=== PATIENT | male | born 1975 | race Caucasian/White ===

== ENCOUNTER → 2016-08-01 | Outpatient (CLI) | payer BC ==
--- NOTE | 2016-08-01 09:43 | REP ---
PA and lateral chest 08/01/2016 Indication: productive cough and fever Comparison: PA and lateral chest 10/02/2005 Findings: Cardiomediastinal silhouette is normal. Small area of left lower lobe consolidation is most compatible with most compatible with alveolar infiltrate. Lungs are otherwise clear. There are mild degenerative changes in thoracic spine. Soft tissues are within normal limits. Impression: left lower lobe parenchymal disease in the retrocardiac location most compatible with alveolar infiltrate. However, followup to complete resolution is recommended. Signed by Dimple Andrade MD 08/01/2016 09:35 A
== END ==
LOC: M ADAMS 09:05
PROVIDERS: ATTEND Physician Assistant
DX: R05 Cough (principal); R50.9 Fever, unspecified

== ENCOUNTER → 2018-02-08 | Outpatient (CLI) | payer BC | LOC: M ADAMS 08:45 | DX: R06.00 Dyspnea, unspecified (principal); R53.83 Other fatigue; F17.210 Nicotine dependence, cigarettes, uncomplicated | CPT/HCPCS: 71046 ==

== ENCOUNTER → 2018-02-28 | Outpatient (REF) | payer BC | LOC: M LAB REF 12:08 | DX: R91.8 Other nonspecific abnormal finding of lung field (principal) | CPT/HCPCS: 88160 ==

== ENCOUNTER → 2018-03-01 | Outpatient (REF) | payer BC | LOC: M LAB REF 10:14 | DX: R91.8 Other nonspecific abnormal finding of lung field (principal) ==

== ENCOUNTER → 2018-03-02 | Outpatient (REF) | payer BC | LOC: M LAB REF 10:05 | DX: R91.8 Other nonspecific abnormal finding of lung field (principal) | CPT/HCPCS: 88160 ==

== ENCOUNTER → 2018-03-20 | Outpatient (CLI) | payer BC | LOC: M PLARAD 10:28 | DX: R91.8 Other nonspecific abnormal finding of lung field (principal) | CPT/HCPCS: 78815 ==

== ENCOUNTER → 2018-04-06 | Outpatient (REF) | payer BC ==
[2018-04-08 08:06] LABS: ALPHA 1 ANTITRYPSIN 79 mg/dL (90-200)
== END ==
LOC: M LABDRWAD 12:10
DX: R91.8 Other nonspecific abnormal finding of lung field (principal)
CPT/HCPCS: 82103

== ENCOUNTER → 2018-04-26 | Outpatient (REF) | payer BC ==
[2018-05-01 00:06] LABS: A1A FOR PHENOTYPE 93 mg/dL (90-200); ALPHA-1-ANTITRYPSIN PHENOTYPE MZ (.)
== END ==
LOC: M LAB REF 13:39
DX: J44.9 Chronic obstructive pulmonary disease, unspecified (principal)
CPT/HCPCS: 82103

== ENCOUNTER → 2018-07-14 | Outpatient (CLI) | payer BC ==
--- NOTE | 2018-07-14 13:29 | REP ---
Clinical: Right shoulder pain . Technique: Internal rotation, external rotation, and Y view. Findings: No acute fracture or dislocation. The acromioclavicular and glenohumeral joints are intact. No periarticular calcifications or degenerative changes are appreciated. Sub acromial space is normal. Surrounding soft tissues are unremarkable. Impression: Normal age-appropriate right shoulder radiographs. Electronically Signed by Brody Weller MD 07/14/2018 01:21 P
--- NOTE | 2018-07-14 13:30 | REP ---
Clinical: Neck and right shoulder pain. Technique: AP, lateral, open mouth views of the cervical spine. Findings: Alignment and lordosis is relatively well maintained. Minimal age-related changes include subtle endplate sclerosis. There is very subtle disc space narrowing at C4-5 and C5-6 suggested. C1-C2 articulation and odontoid process are normal. Impression: Mild age-related degenerative changes. Electronically Signed by Brody Weller MD 07/14/2018 01:22 P
== END ==
LOC: M ADAMS 11:13
PROVIDERS: ATTEND Physician Assistant
DX: M25.511 Pain in right shoulder (principal); M50.30 Other cervical disc degeneration, unspecified cervical region

== ENCOUNTER → 2018-08-28 | Outpatient (CLI) | payer BC ==
[~2018-08-28] MED LIST: ISOVUE-370 76% 100ML VIAL (Q9967) As Ordered ONE
--- NOTE | 2018-08-29 07:40 | REP ---
Clinical: Abnormal lung findings. Technique: Axial contrast enhanced images from the thoracic inlet to the upper abdomen with coronal and sagittal re-formations. Comparison: 02/27/2018. Findings: Advanced COPD/emphysematous changes primarily involving the bilateral upper lung zones noted without consolidation, significant nodule or mass lesion. No pleural effusion. No pneumothorax. Tracheobronchial tree demonstrates perihilar bronchiectasis are remains patent. Mediastinal and bilateral hilar adenopathy remains essentially unchanged including right hilar lymph nodes measuring up to approximately 15 mm. Thoracic aorta, pulmonary vasculature and heart/pericardium are normal. Surrounding musculoskeletal structures are intact without focal osseous abnormality. Limited upper abdomen demonstrates normal bilateral adrenal glands. Impression: 1. Advanced COPD/emphysematous changes along with mediastinal/hilar adenopathy remaining stable compared to prior examination. 2. No obvious acute process. No significant nodule or mass lesion identified. Electronically Signed by Brody Weller MD 08/29/2018 07:32 A
== END ==
LOC: M RAD 13:30
PROVIDERS: ATTEND Internal Medicine Pulmonary Disease
DX: J43.9 Emphysema, unspecified (principal)
CPT/HCPCS: 71260; Q9967

== ENCOUNTER → 2018-10-17 | Outpatient (REF) | payer BC ==
[2018-10-17 17:12] LABS: BASO % 0.8 % (0.0-1.0); EOS # 0.1 10^3/uL (0.0-0.50); EOS % 2.3 % (0.0-3.0); HEMATOCRIT 40.7 % (42.0-52.0); HEMOGLOBIN 13.7 g/dl (13.5-17.5); LYMPH # 1.2 10^3/uL (1.5-4.5); LYMPH % 24.6 % (24.0-44.0); MEAN CORPUSCULAR HEMOGLOBIN 30.5 pg (27.0-33.0); MEAN CORPUSCULAR HGB CONC 33.7 g/dl (32.0-36.5); MEAN CORPUSCULAR VOLUME 90.6 fl (80.0-96.0); MONO # 0.3 10^3/uL (0.0-0.8); MONO % 7.1 % (0.0-5.0); NEUTROPHILS # 3.1 10^3/uL (1.8-7.7); PLATELET COUNT, AUTOMATED 168 10^3/uL (150-450); RED BLOOD COUNT 4.49 10^6/uL (4.30-6.10); WHITE BLOOD COUNT 4.8 10^3/uL (4.0-10.0)
[2018-10-17 17:16] LABS: INR 1.09
[2018-10-17 17:17] LABS: PARTIAL THROMBOPLASTIN TIME 27.6 SECONDS (25.4-37.6)
[2018-10-17 17:37] LABS: BLOOD UREA NITROGEN 14 MG/DL (7-18); CALCIUM LEVEL 8.7 MG/DL (8.5-10.1); CARBON DIOXIDE LEVEL 25 MEQ/L (21-32); CHLORIDE LEVEL 106 MEQ/L (98-107); CREATININE FOR GFR 1.01 MG/DL (0.70-1.30); GLOMERULAR FILTRATION RATE > 60.0 (>60); GLUCOSE, FASTING 70 MG/DL (70-100); POTASSIUM SERUM 5.2 MEQ/L (3.5-5.1); SODIUM LEVEL 137 MEQ/L (136-145)
[2018-10-17 17:56] LABS: PROTHROMBIN TIME 14.2 SECONDS (12.1-14.4)
== END ==
LOC: M LAB REF 16:58
PROVIDERS: ATTEND Internal Medicine Pulmonary Disease
DX: R91.8 Other nonspecific abnormal finding of lung field (principal)

== ENCOUNTER 2018-10-30 08:21 | Day surgery (SDC) | payer BC ==
[~2018-10-30] VITALS: Ht 160 cm; Wt 74.1 kg
[~2018-10-30 08:21] MED LIST changes: +ALBUTEROL SULFATE 2.5 MG/0.5 ML INH NEB SOLN INH ONE; +FLUO20CA19; +GABA-843 PO; -ISOVUE-370 76% 100ML VIAL (Q9967) As Ordered ONE; +LIDOCAINE 4% INJ 5 ML AMP INH ONE; +LR 1,000 ML IV ONE; +OMEP40CA2
[2018-10-30] MEDS ORDERED: THROMBIN SOLN 5,000 UNITS VIAL As Ordered ONE (08:23)
[2018-10-30] MEDS ORDERED: LIDOCAINE 1% MDV 20ML VIAL As Ordered ONE (08:23)
[2018-10-30] MEDS ORDERED: EPINEPHrine 1MG/10ML SYRINGE 1.5IN As Ordered ONE (08:24)
[2018-10-30] MEDS ORDERED: LIDOCAINE VISCOUS 2% SOLN 15ML UDC As Ordered ONE (08:24)
[2018-10-30] MEDS ORDERED: CETACAINE SPRAY 5GM As Ordered ONE (08:24)
[2018-10-30] MEDS ORDERED: fentaNYL 100 MCG/2 ML INJECTION (J3010) As Ordered ONE ×2 (09:23→10:12)
[2018-10-30] MEDS ORDERED: MIDAZOLAM INJ 2 MG/2 ML VIAL (J2250) As Ordered ONE (09:23)
[2018-10-30] MEDS ORDERED: LIDOCAINE 2% INJ 100 MG/5 ML SDV (FOR ANES.) As Ordered ONE (09:25)
[2018-10-30] MEDS ORDERED: dexameTHASONE 4 MG/ML 1ML VIAL (J1100) As Ordered ONE (09:25)
[2018-10-30] MEDS ORDERED: ONDANSETRON 4MG/2ML VIAL (J2405) As Ordered ONE (09:25)
[2018-10-30] MEDS ORDERED: ROCURONIUM BROMIDE 50 MG/5 ML VIAL As Ordered ONE (09:25)
[2018-10-30] MEDS ORDERED: PROPOFOL 200 MG/20 ML VIAL As Ordered ONE (09:25)
[2018-10-30] MEDS ORDERED: SUGAMMADEX SODIUM 500 MG/5 ML VIAL (BRIDION) As Ordered ONE (10:33)
[2018-10-30] MEDS ORDERED: fentaNYL 100 MCG/2 ML INJECTION (J3010) IV PRN (11:15)
[2018-10-30] MEDS ORDERED: LR 1,000 ML IV SCH (11:15)
[2018-10-30] MEDS ORDERED: PERCOCET 5MG/325MG TAB PO PRN (11:15)
[2018-10-30] MEDS ORDERED: ONDANSETRON 4MG/2ML VIAL (J2405) IV PRN (11:15)
--- NOTE | 2018-10-30 11:34 | REP ---
Portable chest, 11:16 a.m., single AP upright view, post bronchoscopy: Comparison is a 10/03/2015. There is an incomplete inspiratory effort. There is no pneumothorax or pleural fluid collection. There is left lower lobe atelectasis. Right lung is clear. Cardiac size is normal. Electronically Signed by Matt Fields MD 10/30/2018 11:25 A
[2018-10-30 11:50] VITALS: BP 111/62
--- NOTE | 2018-10-30 13:31 | ROOR ---
Patient Name: Titus Lee Procedure Date: 10/30/2018 8:44 AM Date of : 1975 Admit Type: Outpatient Age: 42 Note Status: Finalized Attending MD: Zora Duffy MD Procedure: Bronchoscopy Indications: Bilateral hilar lymphadenopathy, Mediastinal adenopathy, Paratracheal adenopathy Providers: Zora Duffy MD (Doctor) Referring MD: 1. No Referring Physician 1. No Referring Physician, Admin. (Referring MD) Requesting Physician: Medicines: General Anesthesia, Cetacaine topical Complications: No immediate complications. Estimated blood loss: Minimal Procedure: Pre-Anesthesia Assessment: - Prior to the procedure, a History and Physical was performed, and patient medications and allergies were reviewed. The patient's tolerance of previous anesthesia was also reviewed. The risks and benefits of the procedure and the sedation options and risks were discussed with the patient. All questions were answered, and informed consent was obtained. Prior Anticoagulants: The patient has taken no previous anticoagulant or antiplatelet agents. ASA Grade Assessment: III - A patient with severe systemic disease. After reviewing the risks and benefits, the patient was deemed in satisfactory condition to undergo the procedure. The Bronchoscope was introduced through the mouth, via the endotracheal tube (the patient was intubated for the procedure) and advanced to the tracheobronchial tree of both lungs. The procedure was accomplished without difficulty. The patient tolerated the procedure well. Findings: The endotracheal tube is in good position. The visualized portion of the trachea is of normal caliber. The emory is sharp. The tracheobronchial tree was examined to at least the first subsegmental level. Bronchial mucosa and anatomy are normal; there are no endobronchial lesions, and no secretions. An endobronchial ultrasound endoscope was utilized in order to assist with fine needle aspiration in the subcarinal area and in the right hilum. Transbronchial needle aspirations of lymph nodes were performed in the subcarinal area and in the right hilum using an Olympus EBUS-TBNA 21 gauge needle and sent for routine cytology. The procedure was guided by ultrasound. Impression: - Bilateral hilar lymphadenopathy - Mediastinal adenopathy - Paratracheal adenopathy - The airway examination was normal. - Endobronchial ultrasound was performed. - A transbronchial needle aspiration was performed. Recommendation: - Follow up with bronchoscopist as previously scheduled. Attending Participation: I personally performed the entire procedure. Zora Duffy MD 10/30/2018 1:31:24 PM Number of Addenda: 0 Note Initiated On: 10/30/2018 8:44 AM
== END 2018-10-30 12:18 | disposition home or self-care (01) ==
LOC: M SDC 08:21
PROVIDERS: ATTEND Internal Medicine Pulmonary Disease
DX: J44.9 Chronic obstructive pulmonary disease, unspecified (principal); K21.9 Gastro-esophageal reflux disease without esophagitis; J30.9 Allergic rhinitis, unspecified; F32.9 Major depressive disorder, single episode, unspecified; F10.10 Alcohol abuse, uncomplicated; F17.210 Nicotine dependence, cigarettes, uncomplicated; Z79.899 Other long term (current) drug therapy; Z79.51 Long term (current) use of inhaled steroids
CPT/HCPCS: 31652; 71045; 88173; 88305; 88313; J1100; J2250; J2405; J3010

== ENCOUNTER → 2019-10-02 | Outpatient (CLI) | payer BC ==
[~2019-10-02] MED LIST changes: -ALBUTEROL SULFATE 2.5 MG/0.5 ML INH NEB SOLN INH ONE; -FLUO20CA19; +FLUO20CA22; -LIDOCAINE 4% INJ 5 ML AMP INH ONE; -LR 1,000 ML IV ONE; -OMEP40CA2; +OMEP40CA97
--- NOTE | 2019-10-03 04:18 | REP ---
Clinical: Chest pain. History of COPD. Technique: Axial noncontrast images from the thoracic inlet to the upper abdomen with coronal and sagittal re-formations. Comparison: 08/28/2018, 02/27/2018. Findings: Advanced COPD/emphysematous changes primarily involving the bilateral upper lung zones with scattered bullae/blebs and mild early bronchiectasis again noted and similar to prior examination. No consolidation. No effusion. No significant nodule or mass lesion identified. Mediastinum demonstrates relatively normal thoracic aorta, pulmonary vasculature and heart/pericardium. No significant adenopathy. Musculoskeletal structures are intact. Limited upper abdomen demonstrates normal bilateral adrenal glands. Impression: COPD/emphysematous changes similar to prior examination. No acute mediastinal or pleuroparenchymal process appreciated. Electronically Signed by Brody Weller MD 10/03/2019 04:09 A
== END ==
LOC: M RAD 11:03
PROVIDERS: ATTEND Internal Medicine Pulmonary Disease
DX: J44.9 Chronic obstructive pulmonary disease, unspecified (principal)

== ENCOUNTER → 2019-10-11 | Outpatient (REF) | payer BC | LOC: M LABDRWAD 11:54 | PROVIDERS: ATTEND Internal Medicine Pulmonary Disease | DX: E88.01 Alpha-1-antitrypsin deficiency (principal) ==

== ENCOUNTER → 2019-12-19 | Outpatient (CLI) | payer BC ==
--- NOTE | 2019-12-19 19:25 | REP ---
Clinical: Pain. Technique: AP, lateral, bilateral oblique views of the right first digit. Findings: No acute fracture or dislocation. Degenerative changes include periarticular sclerosis and minimal joint space narrowing primarily involving the metacarpal phalangeal joint. No subcutaneous emphysema or foreign body. Impression: Mild degenerative changes primarily involving the MCP joint. Electronically Signed by Brody Weller MD 12/19/2019 07:17 P
== END ==
LOC: M ADAMS 08:46
PROVIDERS: ATTEND Physician Assistant
DX: S63.601A Unspecified sprain of right thumb, initial encounter (principal); X58.XXXA Exposure to other specified factors, initial encounter; Y92.89 Other specified places as the place of occurrence of the external cause; Y93.9 Activity, unspecified; Y99.9 Unspecified external cause status

== ENCOUNTER → 2020-10-05 | Outpatient (CLI) | payer BC ==
[~2020-10-05] MED LIST changes: +GABA-282 PO; -GABA-843 PO
== END ==
LOC: M RAD 10:19
PROVIDERS: ATTEND Internal Medicine Pulmonary Disease
DX: R91.8 Other nonspecific abnormal finding of lung field (principal)

== ENCOUNTER → 2021-10-27 | Outpatient (CLI) | payer BC ==
[~2021-10-27] MED LIST changes: +OMEP40CA4; -OMEP40CA97
== END ==
LOC: M PLAIMG 07:43
PROVIDERS: ATTEND Internal Medicine Pulmonary Disease
DX: J43.8 Other emphysema (principal)

== ENCOUNTER → 2024-10-01 | Outpatient (CLI) | payer BC, OTHER ==
[~2024-10-01] MED LIST changes: +FLUO-365; -FLUO20CA22; +GABA-1172 PO; -GABA-282 PO
== END ==
LOC: M RAD 08:20
PROVIDERS: ATTEND Internal Medicine Pulmonary Disease
DX: R91.8 Other nonspecific abnormal finding of lung field (principal); J44.9 Chronic obstructive pulmonary disease, unspecified; I25.10 Atherosclerotic heart disease of native coronary artery without angina pectoris

== ENCOUNTER → 2024-10-15 | Outpatient (CLI) | payer BC | LOC: M PLARAD 11:14 | PROVIDERS: ATTEND Internal Medicine Pulmonary Disease | DX: R91.8 Other nonspecific abnormal finding of lung field (principal) | CPT/HCPCS: 78815; A9552 ==

== ENCOUNTER → 2024-11-19 | Outpatient (CLI) | payer BC | LOC: M CARPUL 10:56 | PROVIDERS: ATTEND Physician Assistant | DX: R06.02 Shortness of breath (principal); R07.2 Precordial pain ==

== ENCOUNTER → 2025-03-17 | Outpatient (CLI) | payer OTHER | LOC: M RAD 07:09 | PROVIDERS: ATTEND Internal Medicine Pulmonary Disease | DX: R91.8 Other nonspecific abnormal finding of lung field (principal) ==